=== PATIENT | female | born 1940 | race Caucasian/White ===

== ENCOUNTER → 2017-08-04 | Outpatient (CLI) | payer OTHER | LOC: BMCIMAGING 14:08 | PROVIDERS: ATTEND Family Medicine | DX: Z12.31 Encounter for screening mammogram for malignant neoplasm of breast (principal); Z80.3 Family history of malignant neoplasm of breast ==

== ENCOUNTER → 2018-04-19 | Outpatient (CLI) | payer OTHER | LOC: BHFA 13:30 | PROVIDERS: ATTEND Internal Medicine Interventional Cardiology | DX: I48.91 Unspecified atrial fibrillation (principal); Z95.0 Presence of cardiac pacemaker ==

== ENCOUNTER → 2018-11-08 | Outpatient (CLI) | payer OTHER ==
[~2018-11-08] MED LIST: IOPAMIDOL (ISOVUE-M 200) 20 ML VIAL ONE; LIDOCAINE 1% 300 MG/30 ML SDV ONE
[2018-11-08 09:28] LABS: INR 0.94 (0.83-1.16); PROTIME(PATIENT) 12.2 SEC (12.0-15.0)
== END ==
LOC: FIMAGING 08:04
PROVIDERS: ATTEND Neurological Surgery
PROC: 3E0R3KZ Introduction of Other Diagnostic Substance into Spinal Canal, Percutaneous Approach (ICD-10-PCS; principal; 2018-11-08)
DX: M41.86 Other forms of scoliosis, lumbar region (principal); M47.26 Other spondylosis with radiculopathy, lumbar region; M46.97 Unspecified inflammatory spondylopathy, lumbosacral region; M46.96 Unspecified inflammatory spondylopathy, lumbar region; K57.30 Diverticulosis of large intestine without perforation or abscess without bleeding
CPT/HCPCS: 62284; 70450; 72132; 72265; Q9966

== ENCOUNTER → 2018-11-30 | Outpatient (CLI) | payer OTHER | LOC: BMCIMAGING 14:13 | PROVIDERS: ATTEND Family Medicine | DX: Z12.31 Encounter for screening mammogram for malignant neoplasm of breast (principal); Z80.3 Family history of malignant neoplasm of breast ==